=== PATIENT | female | born 1945 | race Caucasian/White ===

== ENCOUNTER 2017-01-03 13:09 | Day surgery (SDC) | payer MEDICARE, OTHER ==
[~2017-01-03 13:09] MED LIST: IMODIUM 2MG. CAP2 MG PO; METFORMIN 500M500 MG PO; METFORMIN ER500 MG PO; SIMVASTATIN40 MG PO; ZOFRAN4 MG PO; [UNRECOGNIZED DRUG - OTHER] PO
--- NOTE | 2017-01-03 14:28 | Operative Note ---
Colonoscopy ([facility]) Procedure date: 01/03/17 Date of : 43 Procedure:Colonoscopy Colonoscopy with cold biopsies Indications: Mrs. Rosa is a 71-year-old female who is here for follow-up screening/ surveillance colonoscopy. The patient did have a 6 mm polyp removed in December 2009 that was hyperplastic (Dr. John Banks). The patient does have a gluten intolerance and reports diarrhea with consumption of white bread and gluten. She also has some gassiness with consumption of onions. The patient reports no abdominal pain, weight loss, change in her bowel habits or rectal bleeding. She reports no family history of colon cancer. Performing Provider: Jacki Infante MD Referrring Provider: Alvin Norris M.D. Sedation: Fentanyl 200 mg IV/Versed 12 mg IV Procedure: Prior to the procedure, a history and physical exam was performed, and patient medications and allergies were reviewed. The risks and benefits of the procedure and the sedation options and risks were discussed with the patient. All questions were answered and informed consent was obtained. Patient identification and proposed procedure were verified by the physician and the nurse. The patient was placed in a left lateral decubitus position. Throughout the procedure, the patient's blood pressure, pulse, and oxygen saturations were monitored continuously. Findings: On digital rectal examination there was normal rectal tone. There were no external hemorrhoids. The colonoscope was introduced through the anal canal to the rectum and advanced to the cecum. The ileocecal valve and appendiceal orifice were identified. The scope was advanced a short distance into the ileum which appeared grossly normal. The scope was then withdrawn into the colon. The cecum, ascending and transverse colon and mucosa were grossly normal. There were extensive scattered diverticuli throughout the descending and sigmoid colon ( LEFT colon). Within the sigmoid colon at 35-40 cm from the anal verge was a submucosal lesion that appeared to be a lipoma. Well biopsies were taken with cold biopsy forceps to achieve deeper histologic tissue for examination. This appears to be a lipoma. The rectum itself was normal. Upon retroflexion within the rectum there were grade 1 internal hemorrhoids. Impressions: 1. Sigmoid submucosal lesion (2 cm)suspect lipoma status post well biopsies 2. Extensive left-sided diverticulosis 3. Grade 1 internal hemorrhoids Recommendations: As long as the biopsies are indicative of lipoma, I am not convinced that she will require any further surveillance colonoscopy in the future. I would encourage fiber supplementation on a long-term daily maintenance basis. Complications: None EBL (ml): 0 at [id number]
[2017-01-03 16:21] VITALS: BP 173/72
== END 2017-01-03 15:50 | disposition home or self-care (01) ==
LOC: SDC 13:09
PROVIDERS: Internal Medicine Gastroenterology
PROC: 0DBN8ZX Excision of Sigmoid Colon, Via Natural or Artificial Opening Endoscopic, Diagnostic (ICD-10-PCS; 2017-01-03)
PROC: 0DJD8ZZ Inspection of Lower Intestinal Tract, Via Natural or Artificial Opening Endoscopic (ICD-10-PCS; principal; 2017-01-03 14:00)
DX: Z12.11 Encounter for screening for malignant neoplasm of colon (principal); Z87.19 Personal history of other diseases of the digestive system; K63.89 Other specified diseases of intestine; K57.30 Diverticulosis of large intestine without perforation or abscess without bleeding; E78.1 Pure hyperglyceridemia